=== PATIENT | male | born 1975 | race Hispanic/Latino ===

== ENCOUNTER → 2019-10-28 | Outpatient (CLI) | payer BC ==
--- NOTE | 2019-10-28 10:57 | Diagnostic Imaging Report ---
Left knee MRI without contrast. History: Knee pain. Medial meniscus tear. Pain not responding to conservative management Comparison: None. Technique: Multiplanar multi-sequence MRI of the knee without contrast. Findings: Medial compartment: Obliquely oriented undersurface tear involving the posterior horn and body segments of the medial meniscus. Articular cartilage fraying and fissuring in the medial compartment with mild underlying bone marrow edema. The medial collateral ligament complex is intact. Lateral compartment: No meniscal tear or cartilage abnormality. The LCL complex is normal. Intercondylar notch: The ACL and PCL are intact. Patellofemoral compartment: Articular cartilage fraying and fissuring in the patellofemoral compartment. Extensor mechanism: The quadriceps and patellar tendons are normal. Other findings: There is a joint effusion and synovitis. There is no acute fracture, subluxation or avascular necrosis. Tiny Jose's cyst. IMPRESSION: Medial meniscus tear with mild degenerative arthrosis in the medial compartment of the knee. Articular cartilage fraying and fissuring in the patellofemoral compartment. Signed by: Dr. Dc Richard M.D. on 10/28/2019 10:54 AM
== END ==
LOC: MRI 07:21
PROVIDERS: ATTEND Specialist
DX: S83.242A Other tear of medial meniscus, current injury, left knee, initial encounter (principal)

== ENCOUNTER → 2019-11-16 | Day surgery (SDC) | payer BC, OTHER ==
[~2019-11-16] MED LIST: BUPIVACAINE HCL 0.5% INJ 30 ML VIAL INJ ONE; CEFAZOLIN SOD 1 GM/NS 50ML 100 ML IV ONE; DEXAMETHASONE SOD PHOS INJ 4 MG/ML VIAL ONE; FENTANYL CITRATE/PF 100MCG/2 ML INJ ONE; LIDOCAINE HCL 2% LOCAL INJ 5 ML SDV VIAL INJ ONE; MIDAZOLAM HCL 2 MG/2 ML VIAL ONE; ONDANSETRON HCL INJ 2MG/ML 2ML 2 MG/ML VIAL ONE; PROPOFOL IV EMULSION 10 MG/ML 20 ML VIAL ONE; SEVOFLURANE INHAL SOLN 250 ML PEN BTL ONE
[2019-11-16 09:25] VITALS: BP 132/90
--- NOTE | 2019-11-24 20:40 | Operative Report ---
DATE OF PROCEDURE: 11/16/2019 SURGEON: Kojo Reyes MD PREOPERATIVE DIAGNOSES: 1. Left knee medial meniscus tear. 2. 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 POSTOPERATIVE DIAGNOSES: 1. Left knee medial meniscus tear. 2. 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 OPERATIONS/PROCEDURES PERFORMED: The patient underwent left knee examination under anesthesia, left knee arthroscopy, left knee partial medial meniscectomy; left knee chondroplasty of the patella, the trochlea, the medial femoral condyle, the lateral tibial plateau, and lateral femoral condyle. ANESTHESIA: General endotracheal intubation anesthesia. IV FLUIDS: Per the anesthesia record. BRIEF DESCRIPTION OF THE PATIENT'S OPERATIVE PROCEDURE: Mr. Barton was taken to the operating room and placed in the supine position on the operating table. Following induction of general anesthesia as well as endotracheal intubation, the patient's left lower extremity was examined under anesthesia. He was found to have a mild effusion within the knee joint, but otherwise ligamentously stable knee. The patient's lower extremity was prepped and draped in a standard surgical fashion. A 2-port technique was used to provide this patient arthroscopic evaluation of the knee joint. Examination of the suprapatellar pouch and medial and lateral gutters found no evidence of loose bodies. There was however evidence of chondromalacia of the patellar and trochlear surfaces. The scope was advanced into the medial compartment. Examination of the medial compartment demonstrated a torn medial meniscus. There was also chondromalacia of the medial femoral condyle. A combination of biting forceps and a motorized shaver were used to resect the torn portion of meniscus. A chondroplasty of the medial femoral condyle was performed at this time. Scope was advanced to the intercondylar notch and the anterior cruciate ligament was identified and found to be intact. Scope was advanced to lateral compartment and there was chondromalacia of the articulating surfaces. A chondroplasty of the lateral tibial plateau and lateral femoral condyle were performed at this time. Scope was then placed in suprapatellar pouch and chondroplasties of the patellar and trochlear performed. The knee was deflated with sterile normal saline. The portal sites were closed using 4-0 nylon sutures. The portal sites as well as knee itself were then injected 0.5% Marcaine with epinephrine. Sterile dressings were applied. The patient was awakened and taken to postanesthesia care in stable condition. MD ANA Blank/PIPER /[id number]
== END | disposition home or self-care (01) ==
LOC: OR 05:23
PROVIDERS: ATTEND Specialist
DX: M17.12 Unilateral primary osteoarthritis, left knee (principal); S83.222A Peripheral tear of medial meniscus, current injury, left knee, initial encounter; Z01.810 Encounter for preprocedural cardiovascular examination; Z11.59 Encounter for screening for other viral diseases
CPT/HCPCS: 29881; 87635; 93005; J0690; J1100; J2001; J2250; J2405; J2704; J3010